=== PATIENT | male | born 1960 | race Caucasian/White ===

== ENCOUNTER → 2021-03-03 | Outpatient (CLI) | payer OTHER, MEDICARE ==
[~2021-03-03] MED LIST: CELEBREX 200 M200 M1 PO; FLOMAX0.4 MG PO; FUROSEMIDE 40 M40 MG PO; LIDODERM 5%1 PATC1 TOP; LORAZEPAM 0.50.5 MG PO; METOPROLOL SUCC25 M1 PO; NORCO 10-325 T1 EACH PO; OXYCODONE HCL 55 MG PO; PACERONE 200 M200 M1 PO; PENICILLIN V P500 MG PO; RITALIN LA20 MG PO; SPIRONOLACTONE25 MG PO; XARELTO10 MG PO; XARELTO20 MG PO
== END ==
LOC: SJCVC 10:21
PROVIDERS: ATTEND Internal Medicine Cardiovascular Disease
DX: R94.31 Abnormal electrocardiogram [ECG] [EKG] (principal); I48.19 Other persistent atrial fibrillation; I42.8 Other cardiomyopathies; G47.33 Obstructive sleep apnea (adult) (pediatric); I50.9 Heart failure, unspecified; Z79.899 Other long term (current) drug therapy; Z86.16 Personal history of COVID-19; Z87.891 Personal history of nicotine dependence

== ENCOUNTER → 2021-03-04 | Outpatient (CLI) | payer OTHER, MEDICARE ==
[~2021-03-04] VITALS: Ht 180.3 cm; Wt 93.6 kg
--- NOTE | ~2021-03-04 | P ---
[facility] [place] [address] PROCEDURE REPORT Name: DAMIEN SLAUGHTER I Room #: [facility].#: [id number] Admission: 03/04/21 Attend Phys: Micky Valentin MD Discharge: Date of : 64 Report #: [id number] THIS REPORT FOR: cc: Edvin Coronado MD, Bruce D. MD Couchonnal, Luis F. MD ~ DOC #: [id number] Micky Valentin MD DATE OF SERVICE: 03/04/2021 PROCEDURE: Cardioversion. PREOPERATIVE DIAGNOSIS: Atrial fibrillation. POSTOPERATIVE DIAGNOSIS: Atrial fibrillation. DESCRIPTION OF PROCEDURE: The patient underwent informed consent, was prepped and draped in standard fashion. He had patches placed in AP position. He was sedated by anesthesiology service and then underwent a single 200 joule synchronized cardioversion with catholic of sinus rhythm. There were no procedure related complications. CONCLUSION: Successful DC cardioversion with catholic of sinus rhythm. Micky Valentin MD LFC/NOHomar By: [id number] Micky Valentin MD /nt
[2021-03-04 12:12] VITALS: BP 110/92
[2021-03-04 12:38] LABS: ABSOLUTE NEUTROPHILS 4.3 thou/uL (1.4-8.2); BASOPHILS 0.6 % (0.0-2.0); EOSINOPHILS 1.8 % (0.0-3.0); HEMOGLOBIN 17.5 gm/dL (14.0-18.0); LYMPHOCYTES 24.2 % (24.0-44.0); MCH 32.8 pg (26.0-34.0); MCHC 33.6 g/dL (28.0-37.0); MCV 97.9 fL (80.0-100.0); MONOCYTES 9.5 % (1.0-8.0); PLATELET COUNT 234 thou/uL (150-400); POLYS 63.9 % (36.0-66.0); RBC 5.32 mil/uL (4.50-6.00); RDW 14.7 % (10.5-14.5); WBC 6.8 thou/uL (4.0-11.0)
[2021-03-04 12:46] LABS: CALCIUM 8.6 mg/dL (8.5-10.1); CREATININE 1.3 mg/dL (0.7-1.3); POTASSIUM 4.5 mmol/L (3.5-5.1)
[2021-03-04 12:52] LABS: ALBUMIN 3.8 g/dL (3.4-5.0); TOTAL BILIRUBIN 1.1 mg/dL (0.2-1.0); TOTAL PROTEIN 7.7 g/dL (6.4-8.2)
[2021-03-04 12:54] LABS: INR 1.1; PROTIME 11.9 Seconds (10.5-12.1)
== END | disposition home or self-care (01) ==
LOC: CATH 10:56
PROVIDERS: ATTEND Internal Medicine Cardiovascular Disease
DX: I48.91 Unspecified atrial fibrillation (principal); I42.9 Cardiomyopathy, unspecified; I50.9 Heart failure, unspecified; G47.30 Sleep apnea, unspecified; Z98.890 Other specified postprocedural states; Z79.899 Other long term (current) drug therapy; Z87.891 Personal history of nicotine dependence; Z79.01 Long term (current) use of anticoagulants
CPT/HCPCS: 62110; 62900

== ENCOUNTER → 2021-03-23 | Outpatient (CLI) | payer OTHER, MEDICARE ==
[2021-03-23 10:23] LABS: ABSOLUTE NEUTROPHILS 4.5 thou/uL (1.4-8.2); BASOPHILS 0.4 % (0.0-2.0); EOSINOPHILS 1.1 % (0.0-3.0); HEMOGLOBIN 16.6 gm/dL (14.0-18.0); LYMPHOCYTES 24.9 % (24.0-44.0); MCH 33.1 pg (26.0-34.0); MCHC 34.5 g/dL (28.0-37.0); MCV 95.9 fL (80.0-100.0); MONOCYTES 7.5 % (1.0-8.0); PLATELET COUNT 233 thou/uL (150-400); POLYS 66.1 % (36.0-66.0); RDW 14.5 % (10.5-14.5); WBC 6.8 thou/uL (4.0-11.0)
[2021-03-23 10:39] LABS: ALBUMIN 3.7 g/dL (3.4-5.0); CALCIUM 8.7 mg/dL (8.5-10.1); CREATININE 1.3 mg/dL (0.7-1.3); POTASSIUM 4.1 mmol/L (3.5-5.1); TOTAL BILIRUBIN 0.8 mg/dL (0.2-1.0); TOTAL PROTEIN 7.1 g/dL (6.4-8.2)
== END ==
LOC: CAT 09:20
PROVIDERS: ATTEND Internal Medicine Cardiovascular Disease
DX: I25.10 Atherosclerotic heart disease of native coronary artery without angina pectoris (principal); M47.814 Spondylosis without myelopathy or radiculopathy, thoracic region; R91.8 Other nonspecific abnormal finding of lung field; I48.91 Unspecified atrial fibrillation

== ENCOUNTER 2021-03-25 06:34 | Observation (INO) | payer OTHER, MEDICARE ==
[2021-03-25] VITALS (9 sets, daily range): BP systolic 109–130; BP diastolic 73–86
[~2021-03-25] VITALS: Ht 180.3 cm; Wt 90.7 kg
[2021-03-25 07:47] LABS: ABSOLUTE NEUTROPHILS 5.8 thou/uL (1.4-8.2); BASOPHILS 0.4 % (0.0-2.0); EOSINOPHILS 1.8 % (0.0-3.0); HEMATOCRIT 49.1 % (42.0-52.0); LYMPHOCYTES 16.3 % (24.0-44.0); MCH 33.3 pg (26.0-34.0); MCHC 34.7 g/dL (28.0-37.0); MCV 95.9 fL (80.0-100.0); MONOCYTES 8.3 % (1.0-8.0); PLATELET COUNT 261 thou/uL (150-400); POLYS 73.2 % (36.0-66.0); RBC 5.12 mil/uL (4.50-6.00); RDW 14.6 % (10.5-14.5); WBC 7.8 thou/uL (4.0-11.0)
[2021-03-25 08:02] LABS: APTT 24.8 Seconds (24.5-32.8); INR 1.02; PROTIME 11.1 Seconds (10.5-12.1)
[2021-03-25 08:06] LABS: CALCIUM 9.1 mg/dL (8.5-10.1); CREATININE 1.2 mg/dL (0.7-1.3); POTASSIUM 3.9 mmol/L (3.5-5.1)
[2021-03-25 08:10] LABS: ALBUMIN 3.6 g/dL (3.4-5.0); TOTAL BILIRUBIN 0.7 mg/dL (0.2-1.0); TOTAL PROTEIN 7.2 g/dL (6.4-8.2)
--- NOTE | 2021-03-25 18:13 | NUR ---
ADMITTED THIS 61 YEAR OLD PATIENT POST AF ABLATION.ON ROOM AIR BREATHING SPONTANEOUSLY.WITH POST PROCEDURE SITE AT RIGHT GROIN COVERED WITH INTACT DRESSING, NO OOZING, NO HEMATOMA OR ANY COMPLICATTIONS NOTED FROM THE SITE.PATIENT WAS ON BEDREST INITIALLY AND WAS ABLE TO MOVE OUT OF BED AT 1700H.ALL NEEDS ATTENDED.ADMISSION COMPLETED.
[2021-03-26 00:04] VITALS: BP 119/77
--- NOTE | 2021-03-26 03:26 | NUR ---
RIGHT GROIN C/D/I.HAS BEEN OFF BEDREST AND VOIDED.CHEST PAIN DUE TO COUGHING.GUIAFENESIN AND HYDROCODONE GIVEN AND PAIN WELL CONTROLLED.MONITOR SHOWS SINUS ARRYTHMIA.POC CONTINUED.
[2021-03-26 05:19] VITALS: BP 111/73
[2021-03-26 08:08] VITALS: BP 124/72
[2021-03-26 09:08] VITALS: BP 124/72
--- NOTE | 2021-03-26 10:42 | NUR ---
ASSESSMENT CHARTED - MEDS PER SALBADOR - SERGIO DIET AND FLUIDS. NO CO'S OF NAUSEA. UP AD MOY IN ROOM. NON CARDIAC CHEST PAIN RATED 4 POST MEDICATION. PT HOME THIS AM - INSTRUCTION RE HOME MEDS/ CARE AND FOLLOW UP GIVEN TO PATIENT AND SPOUSE. STATED UNDERSTANDING OF INSTRUCTION GIVEN. LEFT UNIT AMBULATORY PER PATIENT REQUEST - LEXIE VIA PVT VEHICLE - MONITOR AND IV REMOVED PRIOR TO D/C. NO CO'S AT TIME OF D/C.
--- NOTE | 2021-04-06 08:38 | P ---
[facility] [place] [address] PROCEDURE REPORT Name: DAMIEN SLAUGHTER Room #: 200-I [facility] M..#: [id number] Admission: 03/25/21 Attend Phys: Micky Valentin MD Discharge: 03/26/21 Date of : 64 Report #: [id number] THIS REPORT FOR: cc: Edvin Coronado MD, Bruce D. MD Couchonnal, Luis F. MD ~ DATE OF SERVICE: 03/25/2021 PREOPERATIVE DIAGNOSIS: Atrial fibrillation. POSTOPERATIVE DIAGNOSIS: Atrial fibrillation. PROCEDURES PERFORMED: 1. Atrial fibrillation ablation -- CPT code 15415. 2. 3D mapping, CPT code 16600. 3. Intracardiac echo, CPT code 27950. 4. Focal ablation -- CPT code 86371. HISTORY: The patient is a 61-year-old recently diagnosed with AFib, who has failed multiple cardioversions despite antiarrhythmic drug therapy, here for AFib ablation. ANESTHESIA: The patient underwent general anesthesia with no anesthesia related complications. DESCRIPTION OF PROCEDURE: The patient underwent informed consent. As previously documented, the patient was brought to the EP laboratory in a fasting and sedated state, prepped and draped in a standard fashion. I obtained access to the right femoral vein x3, placing 8, 9 and 7-[place] sheaths using the modified Seldinger technique. Next, under fluoroscopy, a decapolar catheter was placed in the coronary sinus and ICE catheter was placed in the right atrium. At baseline, the patient was noted to be in AFib. Using intracardiac ultrasound, a 3D geometry of the left atrium was created and was merged with his cardiac CT scan. Next, the patient was systemically heparinized. Transseptal was performed using an SL1 sheath and Barry needle and this was straightforward. I exchanged the SL1 sheath for the carotid sheath and the Lasso catheter was placed in the left atrium. A detailed 3D voltage map and 3D geometry of the left atrium was then created. Then, we started by isolating the pulmonary veins. The left superior and left inferior pulmonary veins were isolated. I then turned my attention to the right superior pulmonary vein and this was successfully isolated and then I went to the right inferior pulmonary vein and unfortunately this vein could not be isolated with a cryoablation catheter. I did multiple repeat voltage maps and attempts to isolate the inferior aspect of this vein and this was unsuccessful. Therefore, the cryoballoon was removed and a SmartTouch ThermoCool placed into the left atrium and I was able to isolate the right inferior pulmonary vein. [facility] [address] [place] [address] PROCEDURE REPORT Name: DAMIEN SLAUGHTER Room #: 200-I [facility] Noemí Anna#: [id number] Admission: 03/25/21 Attend Phys: Micky Valentin MD Discharge: 03/26/21 Date of : 64 Report #: [id number] Next, I performed a posterior wall ablation and posterior roof line ablation. Ablation was performed from the left superior pulmonary vein to the right superior pulmonary vein and I performed additional ablation along the keri of both the left and right-sided veins. A repeat voltage map was created showing the creation of a roof line and further isolation of the pulmonary veins. The patient was cardioverted and sinus rhythm was restored. Using intracardiac ultrasound, there was no evidence of pericardial effusion. The patient received systemic protamine. Catheters and sheaths were pulled and hemostasis was obtained. The patient awoke neurologically and hemodynamically intact. No complications and no significant bleeding. CONCLUSIONS: 1. Successful AFib ablation with isolation of the pulmonary veins. 2. Successful isolation of the right inferior pulmonary vein using combination cryo and RF ablation. 3. Successful roof line creation. <ELECTRONICALLY SIGNED> By: Micky Valentin MD 04/06/21 [id number] Micky Valentin MD /nt
== END 2021-03-26 09:30 | disposition home or self-care (01) ==
LOC: CATH → 2N 14:46
PROVIDERS: ADMIT Internal Medicine Cardiovascular Disease; ATTEND Internal Medicine Cardiovascular Disease
DX: I48.91 Unspecified atrial fibrillation (principal); Z20.822 Contact with and (suspected) exposure to COVID-19; I42.8 Other cardiomyopathies; G47.33 Obstructive sleep apnea (adult) (pediatric); F41.9 Anxiety disorder, unspecified; F95.2 Tourette's disorder; F17.200 Nicotine dependence, unspecified, uncomplicated; Z79.82 Long term (current) use of aspirin; Z79.899 Other long term (current) drug therapy
CPT/HCPCS: 62110; 62900; 65020; 70005